=== PATIENT | female | born 1965 | race Caucasian/White ===

== ENCOUNTER 2023-09-15 05:31 | Emergency (ER) | payer MEDICAID, SELFPAY ==
[2023-09-15] VITALS (56 sets, daily range): BP systolic 77–141; BP diastolic 45–87; PULSE 75–135; RESP 22–24; TEMP 36.8–38.6; O2SAT 87–97; BMI 26.6
--- NOTE | 2023-09-15 05:44 | ED_ITS ---
HPI - General Adult General Time Seen by Provider: 05:44 <Joie Thomson MD - Last Filed: 09/15/23 06:00> Date Seen: 09/15/23 <Joie Thomson MD - Last Filed: 09/15/23 06:00> Chief complaint: Shortness of Breath/Dyspnea <Joie Thomson MD - Last Filed: 09/15/23 06:00> Stated complaint: Shortness of breath, chest pain <Joie Thomson MD - Last Filed: 09/15/23 06:00> Time Seen by Provider: 09/15/23 05:33 <Joie Thomson MD - Last Filed: 09/15/23 06:00> Source: patient and RN notes reviewed <Joie Thomson MD - Last Filed: 09/15/23 06:00> Mode of arrival: ambulatory <Joie Thomson MD - Last Filed: 09/15/23 06:00> Limitations: no limitations <Joie Thomson MD - Last Filed: 09/15/23 06:00> History of Present Illness HPI narrative: This 58-year-old female is ambulatory into the ED with complaint of chest congestion and shortness of breath. She came home [place] night stating she felt terrible. She reportedly slept most of the weekend. She has been coughing. Fevers. She is a smoker, does not carry a diagnosis of COPD but likely has it. This fall she had episode of chest congestion and was diagnosed with bronchitis, chest x-ray was done which had clinical features seen with COPD. She feels like she cannot breathe. She remember she did not like how the albuterol made her feel. O2 sats on arrival were 87%. No associated GI symptoms. She does report a history of pneumonia. She continues to be nicotine dependent but states she can not currently smoke. <Joie Thomson MD - Last Filed: 09/15/23 06:00> Related Data Home medications: Home Medications Medication Instructions Recorded Confirmed No Known Home Medications 09/15/23 09/15/23 <Joie Thomson MD - Last Filed: 09/15/23 06:00> Allergies/adverse reactions: Allergies Allergy/AdvReac Type Severity Reaction Status Date / Time No Known Drug Allergies Allergy Verified 09/15/23 05:43 <Joie Thomson MD - Last Filed: 09/15/23 06:00> Review of Systems Status of ROS: Reports: 6 or more systems reviewed and unremarkable except as noted in History and below <Joie Thomson MD - Last Filed: 09/15/23 06:00> [facility] Medical History: Medical History (Updated 09/15/23 @ 09:12 by Margy Gamez MD) No significant past medical history <Joie Thomson MD - Last Filed: 09/15/23 06:00> Surgical History: Surgical History (Updated 09/15/23 @ 06:05 by Magen Mckeon RN) No significant past surgical history <Joie Thomson MD - Last Filed: 09/15/23 06:00> Social History: Social History Smoking Status: Current every day smoker Second hand tobacco smoke exposure: Yes How often do you have a drink containing alcohol: never How often do you have six or more drinks on one occasion: Never AUDIT-C Alcohol total score: 0 Non-prescribed substance use: denies use <Joie Thomson MD - Last Filed: 09/15/23 06:00> Exam Const: Vital Signs, click to edit/add: Vital Signs - 24 hr 09/15/23 05:41 09/15/23 05:46 09/15/23 06:00 Temperature 101.5 F H Pulse Rate 130 H Pulse Rate [Right Pulse Oximeter] 135 H Respiratory Rate 24 Blood Pressure Blood Pressure [Ri ght Upper Arm] 123/75 Pulse Oximetry 87 L 91 92 Oxygen Delivery Me thod Room Air Oxygen Flow Rate 09/15/23 06:00 09/15/23 06:00 09/15/23 06:00 Temperature 101.5 F H Pulse Rate 123 H Pulse Rate [Right Pulse Oximeter] Respiratory Rate Blood Pressure Blood Pressure [Ri ght Upper Arm] Pulse Oximetry 93 91 Oxygen Delivery Me thod Nasal Cannula Oxygen Flow Rate 4 09/15/23 06:15 09/15/23 06:16 09/15/23 06:17 Temperature Pulse Rate 124 H 123 H 120 H Pulse Rate [Right Pulse Oximeter] Respiratory Rate Blood Pressure 89/69 L 91/62 Blood Pressure [Ri ght Upper Arm] Pulse Oximetry 91 91 91 Oxygen Delivery Me thod Nasal Cannula Nasal Cannula Oxygen Flow Rate 4 4 09/15/23 06:31 09/15/23 06:32 09/15/23 06:46 Temperature 98.2 F Pulse Rate 106 H 110 H 110 H Pulse Rate [Right Pulse Oximeter] Respiratory Rate 22 24 Blood Pressure 94/62 95/63 Blood Pressure [Ri ght Upper Arm] Pulse Oximetry 91 93 94 Oxygen Delivery Me thod Oxygen Flow Rate 09/15/23 06:47 09/15/23 07:00 09/15/23 07:01 Temperature Pulse Rate 109 H 100 97 Pulse Rate [Right Pulse Oximeter] Respiratory Rate Blood Pressure 81/56 L Blood Pressure [Ri ght Upper Arm] Pulse Oximetry 93 93 92 Oxygen Delivery Me thod Nasal Cannula Nasal Cannula Oxygen Flow Rate 3 3 09/15/23 07:06 09/15/23 07:15 09/15/23 07:17 Temperature Pulse Rate 103 H 101 H 100 Pulse Rate [Right Pulse Oximeter] Respiratory Rate Blood Pressure 84/62 L 80/60 L Blood Pressure [Ri ght Upper Arm] Pulse Oximetry 94 94 93 Oxygen Delivery Me thod Nasal Cannula Nasal Cannula Nasal Cannula Oxygen Flow Rate 3 3 3 09/15/23 07:30 09/15/23 07:35 09/15/23 07:42 Temperature Pulse Rate 96 96 96 Pulse Rate [Right Pulse Oximeter] Respiratory Rate Blood Pressure 81/60 L 88/54 L Blood Pressure [Ri ght Upper Arm] Pulse Oximetry 90 93 95 Oxygen Delivery Me thod Nasal Cannula Nasal Cannula Nasal Cannula Oxygen Flow Rate 3 3 3 09/15/23 07:45 09/15/23 07:45 09/15/23 07:48 Temperature 99 F Pulse Rate 92 92 Pulse Rate [Right Pulse Oximeter] Respiratory Rate Blood Pressure 82/59 L Blood Pressure [Ri ght Upper Arm] Pulse Oximetry 94 94 Oxygen Delivery Me thod Nasal Cannula Nasal Cannula Oxygen Flow Rate 3 3 09/15/23 08:00 09/15/23 08:01 09/15/23 08:15 Temperature Pulse Rate 88 89 86 Pulse Rate [Right Pulse Oximeter] Respiratory Rate Blood Pressure 84/56 L Blood Pressure [Ri ght Upper Arm] Pulse Oximetry 95 95 96 Oxygen Delivery Me thod Nasal Cannula Nasal Cannula Nasal Cannula Oxygen Flow Rate 3 3 3 09/15/23 08:17 09/15/23 08:21 09/15/23 08:30 Temperature Pulse Rate 83 86 Pulse Rate [Right Pulse Oximeter] Respiratory Rate Blood Pressure 82/70 L 102/56 L Blood Pressure [Ri ght Upper Arm] Pulse Oximetry 94 97 Oxygen Delivery Me thod Nasal Cannula Nasal Cannula Nasal Cannula Oxygen Flow Rate 3 3 3 09/15/23 08:31 09/15/23 08:36 09/15/23 08:37 Temperature Pulse Rate 84 87 83 Pulse Rate [Right Pulse Oximeter] Respiratory Rate Blood Pressure 83/63 L 108/55 L Blood Pressure [Ri ght Upper Arm] Pulse Oximetry 94 95 95 Oxygen Delivery Me thod Nasal Cannula Nasal Cannula Nasal Cannula Oxygen Flow Rate 3 3 3 09/15/23 08:42 09/15/23 08:45 09/15/23 08:47 Temperature Pulse Rate 86 83 84 Pulse Rate [Right Pulse Oximeter] Respiratory Rate Blood Pressure 126/85 141/87 H Blood Pressure [Ri ght Upper Arm] Pulse Oximetry 96 95 95 Oxygen Delivery Me thod Nasal Cannula Nasal Cannula Nasal Cannula Oxygen Flow Rate 2 2 2 09/15/23 08:48 09/15/23 08:52 09/15/23 08:53 Temperature Pulse Rate 83 82 84 Pulse Rate [Right Pulse Oximeter] Respiratory Rate Blood Pressure 85/49 L 101/54 L Blood Pressure [Ri ght Upper Arm] Pulse Oximetry 95 95 94 Oxygen Delivery Me thod Nasal Cannula Nasal Cannula Nasal Cannula Oxygen Flow Rate 2 2 1.5 09/15/23 08:56 09/15/23 08:57 09/15/23 08:58 Temperature Pulse Rate 86 84 79 Pulse Rate [Right Pulse Oximeter] Respiratory Rate Blood Pressure 77/62 L 106/58 L 95/58 L Blood Pressure [Ri ght Upper Arm] Pulse Oximetry 95 94 94 Oxygen Delivery Me thod Nasal Cannula Nasal Cannula Nasal Cannula Oxygen Flow Rate 1.5 1.5 1.5 09/15/23 09:00 09/15/23 09:01 09/15/23 09:06 Temperature Pulse Rate 82 84 83 Pulse Rate [Right Pulse Oximeter] Respiratory Rate Blood Pressure 109/63 110/76 Blood Pressure [Ri ght Upper Arm] Pulse Oximetry 94 94 95 Oxygen Delivery Me thod Nasal Cannula Nasal Cannula Nasal Cannula Oxygen Flow Rate 1.5 1.5 1.5 09/15/23 09:11 09/15/23 09:12 09/15/23 09:15 Temperature Pulse Rate 82 79 82 Pulse Rate [Right Pulse Oximeter] Respiratory Rate Blood Pressure 107/66 Blood Pressure [Ri ght Upper Arm] Pulse Oximetry 94 94 93 Oxygen Delivery Me thod Nasal Cannula Nasal Cannula Nasal Cannula Oxygen Flow Rate 1.5 1.5 1.5 09/15/23 09:18 09/15/23 09:21 09/15/23 09:30 Temperature Pulse Rate 82 86 76 Pulse Rate [Right Pulse Oximeter] Respiratory Rate Blood Pressure 100/60 99/48 L Blood Pressure [Ri ght Upper Arm] Pulse Oximetry 94 95 94 Oxygen Delivery Me thod Nasal Cannula Nasal Cannula Nasal Cannula Oxygen Flow Rate 1.5 1.5 1.5 09/15/23 09:30 09/15/23 09:31 09/15/23 09:32 Temperature 98.8 F Pulse Rate 75 75 Pulse Rate [Right Pulse Oximeter] Respiratory Rate Blood Pressure 98/63 Blood Pressure [Ri ght Upper Arm] Pulse Oximetry 94 94 Oxygen Delivery Me thod Nasal Cannula Oxygen Flow Rate 1.5 09/15/23 09:41 09/15/23 09:45 09/15/23 09:51 Temperature Pulse Rate 84 86 84 Pulse Rate [Right Pulse Oximeter] Respiratory Rate Blood Pressure 98/72 96/64 Blood Pressure [Ri ght Upper Arm] Pulse Oximetry 96 96 94 Oxygen Delivery Me thod Oxygen Flow Rate 09/15/23 10:00 09/15/23 10:02 Temperature Pulse Rate 78 79 Pulse Rate [Right Pulse Oximeter] Respiratory Rate Blood Pressure 99/45 L Blood Pressure [Ri ght Upper Arm] Pulse Oximetry 95 95 Oxygen Delivery Me thod Oxygen Flow Rate Patient is sitting upright on the edge of the bed, has oxygen on. On 4 L she is only 90-91%. Sclera clear, pupils equal round reactive. She is still able to talk but more in short phrases. Face atraumatic. Neck is supple, no cervical adenopathy or thyromegaly masses or nodules. Lungs with distant breath sounds, here no crackles or wheezing, she does have prolonged expiratory rib phase. CV fast, harsh systolic murmur heard right upper sternal border, 2 to 3/6. Normal S1-S2, no S3-S4. Abdomen is soft, nontender. She has no lower extremity edema. <Joie Thomson MD - Last Filed: 09/15/23 06:00> Vital Signs, click to edit/add: Vital Signs - 24 hr 09/15/23 05:41 09/15/23 05:46 09/15/23 06:00 Temperature 101.5 F H Pulse Rate 130 H Pulse Rate [Right Pulse Oximeter] 135 H Respiratory Rate 24 Blood Pressure Blood Pressure [Ri ght Upper Arm] 123/75 Pulse Oximetry 87 L 91 92 Oxygen Delivery Me thod Room Air Oxygen Flow Rate 09/15/23 06:00 09/15/23 06:00 09/15/23 06:00 Temperature 101.5 F H Pulse Rate 123 H Pulse Rate [Right Pulse Oximeter] Respiratory Rate Blood Pressure Blood Pressure [Ri ght Upper Arm] Pulse Oximetry 93 91 Oxygen Delivery Me thod Nasal Cannula Oxygen Flow Rate 4 09/15/23 06:15 09/15/23 06:16 09/15/23 06:17 Temperature Pulse Rate 124 H 123 H 120 H Pulse Rate [Right Pulse Oximeter] Respiratory Rate Blood Pressure 89/69 L 91/62 Blood Pressure [Ri ght Upper Arm] Pulse Oximetry 91 91 91 Oxygen Delivery Me thod Nasal Cannula Nasal Cannula Oxygen Flow Rate 4 4 09/15/23 06:31 09/15/23 06:32 09/15/23 06:46 Temperature 98.2 F Pulse Rate 106 H 110 H 110 H Pulse Rate [Right Pulse Oximeter] Respiratory Rate 22 24 Blood Pressure 94/62 95/63 Blood Pressure [Ri ght Upper Arm] Pulse Oximetry 91 93 94 Oxygen Delivery Me thod Oxygen Flow Rate 09/15/23 06:47 09/15/23 07:00 09/15/23 07:01 Temperature Pulse Rate 109 H 100 97 Pulse Rate [Right Pulse Oximeter] Respiratory Rate Blood Pressure 81/56 L Blood Pressure [Ri ght Upper Arm] Pulse Oximetry 93 93 92 Oxygen Delivery Me thod Nasal Cannula Nasal Cannula Oxygen Flow Rate 3 3 09/15/23 07:06 09/15/23 07:15 09/15/23 07:17 Temperature Pulse Rate 103 H 101 H 100 Pulse Rate [Right Pulse Oximeter] Respiratory Rate Blood Pressure 84/62 L 80/60 L Blood Pressure [Ri ght Upper Arm] Pulse Oximetry 94 94 93 Oxygen Delivery Me thod Nasal Cannula Nasal Cannula Nasal Cannula Oxygen Flow Rate 3 3 3 09/15/23 07:30 09/15/23 07:35 09/15/23 07:42 Temperature Pulse Rate 96 96 96 Pulse Rate [Right Pulse Oximeter] Respiratory Rate Blood Pressure 81/60 L 88/54 L Blood Pressure [Ri ght Upper Arm] Pulse Oximetry 90 93 95 Oxygen Delivery Me thod Nasal Cannula Nasal Cannula Nasal Cannula Oxygen Flow Rate 3 3 3 09/15/23 07:45 09/15/23 07:45 09/15/23 07:48 Temperature 99 F Pulse Rate 92 92 Pulse Rate [Right Pulse Oximeter] Respiratory Rate Blood Pressure 82/59 L Blood Pressure [Ri ght Upper Arm] Pulse Oximetry 94 94 Oxygen Delivery Me thod Nasal Cannula Nasal Cannula Oxygen Flow Rate 3 3 09/15/23 08:00 09/15/23 08:01 09/15/23 08:15 Temperature Pulse Rate 88 89 86 Pulse Rate [Right Pulse Oximeter] Respiratory Rate Blood Pressure 84/56 L Blood Pressure [Ri ght Upper Arm] Pulse Oximetry 95 95 96 Oxygen Delivery Me thod Nasal Cannula Nasal Cannula Nasal Cannula Oxygen Flow Rate 3 3 3 09/15/23 08:17 09/15/23 08:21 09/15/23 08:30 Temperature Pulse Rate 83 86 Pulse Rate [Right Pulse Oximeter] Respiratory Rate Blood Pressure 82/70 L 102/56 L Blood Pressure [Ri ght Upper Arm] Pulse Oximetry 94 97 Oxygen Delivery Me thod Nasal Cannula Nasal Cannula Nasal Cannula Oxygen Flow Rate 3 3 3 09/15/23 08:31 09/15/23 08:36 09/15/23 08:37 Temperature Pulse Rate 84 87 83 Pulse Rate [Right Pulse Oximeter] Respiratory Rate Blood Pressure 83/63 L 108/55 L Blood Pressure [Ri ght Upper Arm] Pulse Oximetry 94 95 95 Oxygen Delivery Me thod Nasal Cannula Nasal Cannula Nasal Cannula Oxygen Flow Rate 3 3 3 09/15/23 08:42 09/15/23 08:45 09/15/23 08:47 Temperature Pulse Rate 86 83 84 Pulse Rate [Right Pulse Oximeter] Respiratory Rate Blood Pressure 126/85 141/87 H Blood Pressure [Ri ght Upper Arm] Pulse Oximetry 96 95 95 Oxygen Delivery Me thod Nasal Cannula Nasal Cannula Nasal Cannula Oxygen Flow Rate 2 2 2 09/15/23 08:48 09/15/23 08:52 09/15/23 08:53 Temperature Pulse Rate 83 82 84 Pulse Rate [Right Pulse Oximeter] Respiratory Rate Blood Pressure 85/49 L 101/54 L Blood Pressure [Ri ght Upper Arm] Pulse Oximetry 95 95 94 Oxygen Delivery Me thod Nasal Cannula Nasal Cannula Nasal Cannula Oxygen Flow Rate 2 2 1.5 09/15/23 08:56 09/15/23 08:57 09/15/23 08:58 Temperature Pulse Rate 86 84 79 Pulse Rate [Right Pulse Oximeter] Respiratory Rate Blood Pressure 77/62 L 106/58 L 95/58 L Blood Pressure [Ri ght Upper Arm] Pulse Oximetry 95 94 94 Oxygen Delivery Me thod Nasal Cannula Nasal Cannula Nasal Cannula Oxygen Flow Rate 1.5 1.5 1.5 09/15/23 09:00 09/15/23 09:01 09/15/23 09:06 Temperature Pulse Rate 82 84 83 Pulse Rate [Right Pulse Oximeter] Respiratory Rate Blood Pressure 109/63 110/76 Blood Pressure [Ri ght Upper Arm] Pulse Oximetry 94 94 95 Oxygen Delivery Me thod Nasal Cannula Nasal Cannula Nasal Cannula Oxygen Flow Rate 1.5 1.5 1.5 09/15/23 09:11 09/15/23 09:12 09/15/23 09:15 Temperature Pulse Rate 82 79 82 Pulse Rate [Right Pulse Oximeter] Respiratory Rate Blood Pressure 107/66 Blood Pressure [Ri ght Upper Arm] Pulse Oximetry 94 94 93 Oxygen Delivery Me thod Nasal Cannula Nasal Cannula Nasal Cannula Oxygen Flow Rate 1.5 1.5 1.5 09/15/23 09:18 09/15/23 09:21 09/15/23 09:30 Temperature Pulse Rate 82 86 76 Pulse Rate [Right Pulse Oximeter] Respiratory Rate Blood Pressure 100/60 99/48 L Blood Pressure [Ri ght Upper Arm] Pulse Oximetry 94 95 94 Oxygen Delivery Me thod Nasal Cannula Nasal Cannula Nasal Cannula Oxygen Flow Rate 1.5 1.5 1.5 09/15/23 09:30 09/15/23 09:31 09/15/23 09:32 Temperature 98.8 F Pulse Rate 75 75 Pulse Rate [Right Pulse Oximeter] Respiratory Rate Blood Pressure 98/63 Blood Pressure [Ri ght Upper Arm] Pulse Oximetry 94 94 Oxygen Delivery Me thod Nasal Cannula Oxygen Flow Rate 1.5 09/15/23 09:41 09/15/23 09:45 09/15/23 09:51 Temperature Pulse Rate 84 86 84 Pulse Rate [Right Pulse Oximeter] Respiratory Rate Blood Pressure 98/72 96/64 Blood Pressure [Ri ght Upper Arm] Pulse Oximetry 96 96 94 Oxygen Delivery Me thod Oxygen Flow Rate 09/15/23 10:00 09/15/23 10:02 Temperature Pulse Rate 78 79 Pulse Rate [Right Pulse Oximeter] Respiratory Rate Blood Pressure 99/45 L Blood Pressure [Ri ght Upper Arm] Pulse Oximetry 95 95 Oxygen Delivery Me thod Oxygen Flow Rate <Margy Gamez MD - Last Filed: 09/15/23 10:24> Documenting provider has reviewed patient's vital signs: yes <Joie Thomson MD - Last Filed: 09/15/23 06:00> Course Course ED Course: This is a febrile, hypoxic, tachycardic smoker. Likely COPD with infectious etiology, very likely respiratory. She also has a harsh systolic murmur. Her hypoxia will be watched closely, requiring 4 L just to have her at 90-91%. Will get a venous blood gas, CBC, blood cultures. Will try to run point of care troponin and creatinine. Unfortunately the chemistry analyzer is completely down. Sodium, potassium, glucose can be done, they will be able to get a lactate but all other labs are not available at this time. Will obtain portable chest x-ray. Nursing staff had appropriately collected the viral triple swab. Will hold off a nebulization at this point, this certainly could be COVID. If her COVID comes back negative, do think nebulization should be tried. Obviously fussy lobar pneumonia on the portable chest x-ray, may consider that as well. Will give her some Tylenol for fever control. I will also give her 10 mg IV dexamethasone. <Joie Thomson MD - Last Filed: 09/15/23 06:00> Reevaluation(s) Time of Reevaluation #1: 06:20 <Margy Gamez MD - Last Filed: 09/15/23 10:24> Reevaluation #1: Dr. Arita signed this patient out to me. Currently awaiting chest x- ray and triple swab results. Patient's O2 sats improved with oxygen. Blood pressure has drop to 91/62 and her pulse is gone from 135-120. Have ordered 500 mL normal saline. White count within normal limits. Unable to find previous EKG within our system or in the [facility] hyperlink. There is documentation of a murmur on [facility] hyperlink. Re-examination shows patient to be tachycardic at 0105. Systolic murmur 2 to 3/6 noted. Patient denies any chest pain but describes a chest tightness across her chest. She notes that she is much better on oxygen. Symptoms started on FridaySeptember 12. Today is day 4 of symptoms. Has had exposure to illnesses in grand children recently. No vaccination against COVID but states she probably had it -states does not like the word COVID. No flu vaccinations. Does note that she and her have been doing some fasting and still having bowel movements but no diarrhea. Does note that her bowel movements have been black and tarry . Has not seen any blood and no history of abdominal pain. Fecal occult test accomplished. Rectal exam without any obvious gross blood. <Margy Gamez MD - Last Filed: 09/15/23 10:24> Reevaluation #2: Patient continues to be hypotensive although her tachycardia is improved and her heart rate is at 94. Blood pressures 80s over 60s. Initially we had held off on fluids given possibility of COVID but once we knew this was influenza we did give 500 mL plus additional L is now going. Did speak to patient about the possibility of starting a pressor. Blood culture, procalcitonin, lactate just drawn. Zithromax and Tamiflu given. Rocephin is now infusing. <Margy Gamez MD - Last Filed: 09/15/23 10:24> Time of Reevaluation #3: 08:15 <Margy Gamez MD - Last Filed: 09/15/23 10:24> Reevaluation #3: blood pressure persistently hypotensive in spite of 1.5 L of fluid. At this time I have ordered norepinephrine drip. Nursing notes that Ne initially did not want this stating she was feeling better and she did not feel that she was that sick. I did explain to her that she indeed is ill and I highly suggest the pressor. I did state that I would not be able to keep her here in [place]. She is requesting [facility] or [place]. I have placed a call and spoken to triage nurse. Currently awaiting acceptance. I am requesting ICU bed. Nor epi has been started and blood pressure now 102 systolic with heart rate of 80. Second lactate within normal limits. Fecal occult blood negative. Troponin and procalcitonin pending. 0845: I did speak to patient about [facility] [place] She would like to stay within the [facility]. She states she will not go to [place] and talks about going home after receiving fluids here. I have tried to impress upon her how Ill she is at this time. Unfortunately [facility] and [facility] do not have availability but [facility] does. falguni suggest [place] but to my knowledge all of a stings ICU patient's actually go to [place]. She does not want to go to the [facility]. I have spoken to Ramses and her about the lack of ICU and bed availability and that we really should take this bad if at a ll possible. She does agree to go to [facility] although reluctantly. Given multiple issues including rising troponin, hypoxia, hypotension requiring pressors patient should not remain at [facility] as she needs Cardiology and cleaning attendant attention. <Margy Gamez MD - Last Filed: 09/15/23 10:24> Vital Signs Vital signs: Initial Vital Signs Temperature 101.5 F H 09/15/23 05:41 Temperature Source Temporal Artery Scan 09/15/23 05:41 Pulse Rate 135 H 09/15/23 05:41 Respiratory Rate 24 09/15/23 05:41 Blood Pressure 123/75 09/15/23 05:41 Blood Pressure Mean 91 09/15/23 05:41 Blood Pressure Position Sitting 09/15/23 05:41 Pulse Oximetry 87 L 09/15/23 05:41 Oxygen Delivery Method Room Air 09/15/23 05:41 Vital Signs Temperature 101.5 F H 09/15/23 05:41 Pulse Rate 135 H 09/15/23 05:41 Respiratory Rate 24 09/15/23 05:41 Blood Pressure 123/75 09/15/23 05:41 Pulse Oximetry 87 L 09/15/23 05:41 Oxygen Delivery Method Room Air 09/15/23 05:41 Temperature 98.8 F 09/15/23 09:30 Pulse Rate 79 09/15/23 10:02 Respiratory Rate 24 09/15/23 06:46 Blood Pressure 99/45 L 09/15/23 10:02 Pulse Oximetry 95 09/15/23 10:02 Oxygen Delivery Method Nasal Cannula 09/15/23 09:31 Oxygen Flow Rate 1.5 09/15/23 09:31 <Joie Thomson MD - Last Filed: 09/15/23 06:00> Initial Vital Signs Temperature 101.5 F H 09/15/23 05:41 Temperature Source Temporal Artery Scan 09/15/23 05:41 Pulse Rate 135 H 09/15/23 05:41 Respiratory Rate 24 09/15/23 05:41 Blood Pressure 123/75 09/15/23 05:41 Blood Pressure Mean 91 09/15/23 05:41 Blood Pressure Position Sitting 09/15/23 05:41 Pulse Oximetry 87 L 09/15/23 05:41 Oxygen Delivery Method Room Air 09/15/23 05:41 Vital Signs Temperature 101.5 F H 09/15/23 05:41 Pulse Rate 135 H 09/15/23 05:41 Respiratory Rate 24 09/15/23 05:41 Blood Pressure 123/75 09/15/23 05:41 Pulse Oximetry 87 L 09/15/23 05:41 Oxygen Delivery Method Room Air 09/15/23 05:41 Temperature 98.8 F 09/15/23 09:30 Pulse Rate 79 09/15/23 10:02 Respiratory Rate 24 09/15/23 06:46 Blood Pressure 99/45 L 09/15/23 10:02 Pulse Oximetry 95 09/15/23 10:02 Oxygen Delivery Method Nasal Cannula 09/15/23 09:31 Oxygen Flow Rate 1.5 09/15/23 09:31 <Margy Gamez MD - Last Filed: 09/15/23 10:24> Medications Administered Medications: Generic Name Dose Route Start Last Admin Trade Name Freq PRN Reason Stop Dose Admin Norepinephrine/Dextrose 4,000 mcg in 250 mls @ 29.767 mls/hr 09/15/23 07:40 09/15/23 09:52 Norepinephrine 4 Mg/250 Ml IV 0.15 mcg/kg/min CONT PRN 44.65 mls/hr Hypotension Titration Protocol 0.1 MCG/KG/MIN Discontinued Medications Generic Name Dose Route Start Last Admin Trade Name Daveq PRN Reason Stop Dose Admin Acetaminophen 1,000 mg 09/15/23 05:48 09/15/23 06:00 Acetaminophen 500 Mg Tablet PO 09/15/23 05:49 1,000 mg ONCE ONE Administration Azithromycin 500 mg 09/15/23 06:57 09/15/23 07:15 Azithromycin 250 Mg Tablet PO 09/15/23 06:58 500 mg ONCE ONE Administration Dexamethasone 10 mg 09/15/23 05:48 09/15/23 06:00 Dexamethasone 10 Mg/Ml Inj IVP 09/15/23 05:49 10 mg ONCE ONE Administration Sodium Chloride 500 mls @ 500 mls/hr 09/15/23 06:20 09/15/23 07:30 0.9 % Sodium Chloride 500 Ml IV 09/15/23 07:19 Infused .Q1H ONE Infusion Ceftriaxone Sodium 1 gm/ 100 mls @ 200 mls/hr 09/15/23 06:57 09/15/23 08:05 Sodium Chloride IVPB 09/15/23 06:58 Infused ONCE ONE Infusion Sodium Chloride 1,000 mls @ 1,000 mls/hr 09/15/23 07:19 09/15/23 08:10 0.9 % Sodium Chloride 1000 Ml IV 09/15/23 08:18 Infused .Q1H JOCELYNE Infusion Sodium Chloride 500 mls @ 500 mls/hr 09/15/23 08:32 09/15/23 08:32 0.9 % Sodium Chloride 500 Ml IV 09/15/23 09:31 500 mls/hr .Q1H ONE Administration Ketorolac Tromethamine 15 mg 09/15/23 07:49 09/15/23 08:15 Ketorolac 15 Mg/Ml Inj IVP 09/15/23 07:50 15 mg ONCE ONE Administration Oseltamivir Phosphate 75 mg 09/15/23 06:57 09/15/23 07:16 Oseltamivir Phosphate 75 Mg Capsule PO 09/15/23 06:58 75 mg ONCE ONE Administration <Joie R Suchomel-Carvajal, MD - Last Filed: 09/15/23 06:00> Generic Name Dose Route Start Last Admin Trade Name Freq PRN Reason Stop Dose Admin Norepinephrine/Dextrose 4,000 mcg in 250 mls @ 29.767 mls/hr 09/15/23 07:40 09/15/23 09:52 Norepinephrine 4 Mg/250 Ml IV 0.15 mcg/kg/min CONT PRN 44.65 mls/hr Hypotension Titration Protocol 0.1 MCG/KG/MIN Discontinued Medications Generic Name Dose Route Start Last Admin Trade Name Freq PRN Reason Stop Dose Admin Acetaminophen 1,000 mg 09/15/23 05:48 09/15/23 06:00 Acetaminophen 500 Mg Tablet PO 09/15/23 05:49 1,000 mg ONCE ONE Administration Azithromycin 500 mg 09/15/23 06:57 09/15/23 07:15 Azithromycin 250 Mg Tablet PO 09/15/23 06:58 500 mg ONCE ONE Administration Dexamethasone 10 mg 09/15/23 05:48 09/15/23 06:00 Dexamethasone 10 Mg/Ml Inj IVP 09/15/23 05:49 10 mg ONCE ONE Administration Sodium Chloride 500 mls @ 500 mls/hr 09/15/23 06:20 09/15/23 07:30 0.9 % Sodium Chloride 500 Ml IV 09/15/23 07:19 Infused .Q1H ONE Infusion Ceftriaxone Sodium 1 gm/ 100 mls @ 200 mls/hr 09/15/23 06:57 09/15/23 08:05 Sodium Chloride IVPB 09/15/23 06:58 Infused ONCE ONE Infusion Sodium Chloride 1,000 mls @ 1,000 mls/hr 09/15/23 07:19 09/15/23 08:10 0.9 % Sodium Chloride 1000 Ml IV 09/15/23 08:18 Infused .Q1H JOCELYNE Infusion Sodium Chloride 500 mls @ 500 mls/hr 09/15/23 08:32 09/15/23 08:32 0.9 % Sodium Chloride 500 Ml IV 09/15/23 09:31 500 mls/hr .Q1H ONE Administration Ketorolac Tromethamine 15 mg 09/15/23 07:49 09/15/23 08:15 Ketorolac 15 Mg/Ml Inj IVP 09/15/23 07:50 15 mg ONCE ONE Administration Oseltamivir Phosphate 75 mg 09/15/23 06:57 09/15/23 07:16 Oseltamivir Phosphate 75 Mg Capsule PO 09/15/23 06:58 75 mg ONCE ONE Administration <Margy Gamez MD - Last Filed: 09/15/23 10:24> Medical Decision Making MDM Narrative Medical decision making narrative: 1. Influenza A - patient has tested positive for influenza A. No previous vaccination. Will initiate Tamiflu 75 mg p.o. at this time. Tylenol given as well. Patient did have some body aches and thus was also given Toradol 15 mg IV. 2. Hypoxia- oxygen initially at 4 L now has been tapered to 2.5 L with oxygen levels 93-95%. There is no previous diagnosis of COPD but Ramses has a longstanding history of tobacco use. Blood gas showed a pH of 7.5-1, pCO2 of 26 and PO2 of 76. Patient states that she is feeling better with oxygen in place. Holding off a nebulizer at this time given what appears to be heart strain with elevated troponin. 3. Elevated troponin- Initial point of care troponin 0.07. A backup lab troponin I was 0.1. Repeat troponin 0.42.. EKG shows a left bundle branch block at a rate of 128. Second EKG shows left bundle-branch block at rate of 96. Nonspecific ST T-wave abnormality. Patient denies chest pain but does describe a tightness around her chest. No previous history of heart abnormalities with the exception of a murmur. Patient states that she had been watched at a young age in had had studies but none recently. A murmur is documented in her epic chart but I am unable to find echocardiogram or further description. Patient notes that it is mitral valve prolapse. EKG shows left bundle branch block. 4. Pneumonia-right lower lung lobe . Obviously noted on chest x-ray. Discussed with hospitalist. Will use Rocephin and Zithromax at this time for treatment. 5. Hypotension- patient arrived initially normotensive but blood pressures have dropped and now were noted to be consistently in the 80s in spite of fluid bolus. Norepinephrine was started with 1st blood pressure 102 systolic. Heart rate remains at 80. Will continue at this time. 6. Report of dark tarry stools-Hemoccult negative. 7. Disposition- Patient is been accepted to [facility]. Dr.Ivaskovic kening. Patient will be ground ambulance ALS transfer. <Margy Gamez MD - Last Filed: 09/15/23 10:24> Medical Records Medical records reviewed: Yes I reviewed the patient's medical records <Margy Gamez MD - Last Filed: 09/15/23 10:24> Lab Data Lab results reviewed: Yes I reviewed the patient's lab results <Margy Gamez MD - Last Filed: 09/15/23 10:24> Lab results narrative: Chemistry Analyzer is not working. We are dependent upon point of care values. <Margy Gamez MD - Last Filed: 09/15/23 10:24> Labs: Lab Results 09/15/23 09/15/23 09/15/23 Range/Units 05:40 05:50 05:58 WBC 9.46 (4.50-11.00) K/uL RBC 4.25 (4.00-5.20) m/uL Hgb 13.6 (12.0-16.0) gm/dL Hct 39.2 (33.0-51.0) % MCV 92 (80-100) fL MCH 32 (26-34) pg MCHC 35 (32-36) gm/dL RDW Coeff of Shira 12.3 (11.5-15.5) % Plt Count 108 L (140-440) K/uL Neut % (Auto) 86.6 H (42.0-72.0) % Lymph % (Auto) 5.3 L (20-44) % Bradford % (Auto) 7.8 (0.0-11.0) % Eos % (Auto) 0.0 (0.0-7.0) % Baso % (Auto) 0.2 (0.0-3.0) % Neut # (Auto) 8.20 H (1.7-7.0) K/uL Lymph # (Auto) 0.50 L (0.90-2.90) K/uL Bradford # (Auto) 0.70 (0.00-0.90) K/UL Eos # (Auto) 0.00 (0.00-0.50) K/uL Baso # (Auto) 0.02 (0.00-0.30) K/uL Abs Immat Gran (auto) 0.01 (0.00-0.30) K/uL Imm/Tot Granulo (auto) 0.1 % VBG pH 7.521 H (7.32-7.43) VBG pCO2 26 L (40-50) mmHG VBG pO2 76.2 H (25-47) mmHG VBG HCO3 21 (21-28) mmol/L Sodium (135-149) mmol/L Potassium (3.6-5.1) mmol/L Glucose (60-115) mg/dL Lactate 1.0 (0.5-1.9) mmol/L Troponin I (0.01-0.04) ng/mL Procalcitonin (<0.50) ng/mL Stool Occult Blood (Negative) SARS-CoV-2 (PCR) Negative SARS-CoV-2 (Negative) Influenza Type A (PCR) POSITIVE PCR FLU A A (Negative) Influenza Type B (PCR) Negative PCR FLU B (Negative) RSV (PCR) Negative PCR RSV (Negative) POC Creatinine 0.5 L (0.6-1.3) mg/dl POC Troponin I 0.07 H (0.01-0.04) ng/ml 09/15/23 09/15/23 09/15/23 Range/Units 06:10 06:42 07:28 WBC (4.50-11.00) K/uL RBC (4.00-5.20) m/uL Hgb (12.0-16.0) gm/dL Hct (33.0-51.0) % MCV (80-100) fL MCH (26-34) pg MCHC (32-36) gm/dL RDW Coeff of Shira (11.5-15.5) % Plt Count (140-440) K/uL Neut % (Auto) (42.0-72.0) % Lymph % (Auto) (20-44) % Bradford % (Auto) (0.0-11.0) % Eos % (Auto) (0.0-7.0) % Baso % (Auto) (0.0-3.0) % Neut # (Auto) (1.7-7.0) K/uL Lymph # (Auto) (0.90-2.90) K/uL Bradford # (Auto) (0.00-0.90) K/UL Eos # (Auto) (0.00-0.50) K/uL Baso # (Auto) (0.00-0.30) K/uL Abs Immat Gran (auto) (0.00-0.30) K/uL Imm/Tot Granulo (auto) % VBG pH (7.32-7.43) VBG pCO2 (40-50) mmHG VBG pO2 (25-47) mmHG VBG HCO3 (21-28) mmol/L Sodium 131 L (135-149) mmol/L Potassium 3.5 L (3.6-5.1) mmol/L Glucose 108 (60-115) mg/dL Lactate 0.7 (0.5-1.9) mmol/L Troponin I 0.10 H* 0.42 H* (0.01-0.04) ng/mL Procalcitonin 0.07 (<0.50) ng/mL Stool Occult Blood Negative (Negative) SARS-CoV-2 (PCR) (Negative) Influenza Type A (PCR) (Negative) Influenza Type B (PCR) (Negative) RSV (PCR) (Negative) POC Creatinine (0.6-1.3) mg/dl POC Troponin I (0.01-0.04) ng/ml <Joie Thomson MD - Last Filed: 09/15/23 06:00> Lab Results 09/15/23 09/15/23 09/15/23 Range/Units 05:40 05:50 05:58 WBC 9.46 (4.50-11.00) K/uL RBC 4.25 (4.00-5.20) m/uL Hgb 13.6 (12.0-16.0) gm/dL Hct 39.2 (33.0-51.0) % MCV 92 (80-100) fL MCH 32 (26-34) pg MCHC 35 (32-36) gm/dL RDW Coeff of Shira 12.3 (11.5-15.5) % Plt Count 108 L (140-440) K/uL Neut % (Auto) 86.6 H (42.0-72.0) % Lymph % (Auto) 5.3 L (20-44) % Bradford % (Auto) 7.8 (0.0-11.0) % Eos % (Auto) 0.0 (0.0-7.0) % Baso % (Auto) 0.2 (0.0-3.0) % Neut # (Auto) 8.20 H (1.7-7.0) K/uL Lymph # (Auto) 0.50 L (0.90-2.90) K/uL Bradford # (Auto) 0.70 (0.00-0.90) K/UL Eos # (Auto) 0.00 (0.00-0.50) K/uL Baso # (Auto) 0.02 (0.00-0.30) K/uL Abs Immat Gran (auto) 0.01 (0.00-0.30) K/uL Imm/Tot Granulo (auto) 0.1 % VBG pH 7.521 H (7.32-7.43) VBG pCO2 26 L (40-50) mmHG VBG pO2 76.2 H (25-47) mmHG VBG HCO3 21 (21-28) mmol/L Sodium (135-149) mmol/L Potassium (3.6-5.1) mmol/L Glucose (60-115) mg/dL Lactate 1.0 (0.5-1.9) mmol/L Troponin I (0.01-0.04) ng/mL Procalcitonin (<0.50) ng/mL Stool Occult Blood (Negative) SARS-CoV-2 (PCR) Negative SARS-CoV-2 (Negative) Influenza Type A (PCR) POSITIVE PCR FLU A A (Negative) Influenza Type B (PCR) Negative PCR FLU B (Negative) RSV (PCR) Negative PCR RSV (Negative) POC Creatinine 0.5 L (0.6-1.3) mg/dl POC Troponin I 0.07 H (0.01-0.04) ng/ml 09/15/23 09/15/23 09/15/23 Range/Units 06:10 06:42 07:28 WBC (4.50-11.00) K/uL RBC (4.00-5.20) m/uL Hgb (12.0-16.0) gm/dL Hct (33.0-51.0) % MCV (80-100) fL MCH (26-34) pg MCHC (32-36) gm/dL RDW Coeff of Shira (11.5-15.5) % Plt Count (140-440) K/uL Neut % (Auto) (42.0-72.0) % Lymph % (Auto) (20-44) % Bradford % (Auto) (0.0-11.0) % Eos % (Auto) (0.0-7.0) % Baso % (Auto) (0.0-3.0) % Neut # (Auto) (1.7-7.0) K/uL Lymph # (Auto) (0.90-2.90) K/uL Bradford # (Auto) (0.00-0.90) K/UL Eos # (Auto) (0.00-0.50) K/uL Baso # (Auto) (0.00-0.30) K/uL Abs Immat Gran (auto) (0.00-0.30) K/uL Imm/Tot Granulo (auto) % VBG pH (7.32-7.43) VBG pCO2 (40-50) mmHG VBG pO2 (25-47) mmHG VBG HCO3 (21-28) mmol/L Sodium 131 L (135-149) mmol/L Potassium 3.5 L (3.6-5.1) mmol/L Glucose 108 (60-115) mg/dL Lactate 0.7 (0.5-1.9) mmol/L Troponin I 0.10 H* 0.42 H* (0.01-0.04) ng/mL Procalcitonin 0.07 (<0.50) ng/mL Stool Occult Blood Negative (Negative) SARS-CoV-2 (PCR) (Negative) Influenza Type A (PCR) (Negative) Influenza Type B (PCR) (Negative) RSV (PCR) (Negative) POC Creatinine (0.6-1.3) mg/dl POC Troponin I (0.01-0.04) ng/ml <Margy Gamez MD - Last Filed: 09/15/23 10:24> Imaging Data Chest x-ray: Attestation: I have reviewed the pertinent imaging results. <Margy Gamez MD - Last Filed: 09/15/23 10:24> My impression: Increased lung markings right lower lung field. <Margy Gamez MD - Last Filed: 09/15/23 10:24> Radiologist's impression: Normal cardiomediastinal silhouette and pulmonary vasculature. Lungs are mildly hyperinflated, similar to prior. Hazy right basilar airspace opacities are most pronounced at the cardiophrenic angle. No large pleural effusion or pneumothorax. No acute osseous abnormality. IMPRESSION: 1. New right basilar airspace opacities concerning for pneumonia. 2. Hyperinflated lungs, which can be seen in the setting of reactive airway disease or emphysema. <Margy Gamez MD - Last Filed: 09/15/23 10:24> ECG Data Attestation: I personally reviewed and interpreted this ECG as follows: ( Sinus tachycardia, 128 beats per minute. Left bundle branch block, QT corrected 478 m illiseconds.) <Joie Thomson MD - Last Filed: 09/15/23 06:00> Prior ECG tracings: not available for review <Joie Thomson MD - Last Filed: 09/15/23 06:00> Interpretation: Initial EKG by my read shows sinus tachycardia at a rate of 128. There is a left bundle-branch block. There is evidence of T-wave inversion. EKG 2. By my read shows sinus rhythm at a rate of 96. Much improved from initial EKG. There is still suggestion of T-wave abnormality throughout. <Margy Gamez MD - Last Filed: 09/15/23 10:24> Critical Care Time Critical Care Time Critical Care Time: Yes Attestation: The patient required my highest level preparedness to intervene emergently and I personally spent this critical care time directly and personally managing the patient. This critical care time included: Obtaining a history; Examining the patient; Pulse oximetry; Ordering and reviewing of studies; Arranging urgent treatment with development of a management plan; Evaluation of patients response to treatment; Frequent reassessment discussions with other providers. This critical care time was performed to assess and manage the high probability of imminent life-threatening deterioration that could result in multiorgan failure. It was exclusive of separate billable procedures and treating other patients and teaching time. <Margy Gamez MD - Last Filed: 09/15/23 10:24> Total Critical Care Time in Minutes: 120 <Margy Gamez MD - Last Filed: 09/15/23 10:24> Discharge Plan Discharge Clinical Impression: Acute hypotension, Influenza A, Cardiac murmur, Elevated troponin, Hypoxic <Joie Thomson MD - Last Filed: 09/15/23 06:00> Patient Disposition: [facility] <Joie Thomson MD - Last Filed: 09/15/23 06:00> Condition: Critical <Joie Thomson MD - Last Filed: 09/15/23 06:00>
--- NOTE | 2023-09-15 05:49 | CRLHL7_ITS ---
For Patients: As a result of the Century Cures Act, medical imaging exams and procedure reports are released immediately into your electronic medical record. You may view this report before your referring provider. If you have questions, please contact your health care provider. INDICATION: Hypoxia. TECHNIQUE: Chest 1 views. COMPARISON: 05/29/2023. FINDINGS: Normal cardiomediastinal silhouette and pulmonary vasculature. Lungs are mildly hyperinflated, similar to prior. Hazy right basilar airspace opacities are most pronounced at the cardiophrenic angle. No large pleural effusion or pneumothorax. No acute osseous abnormality. IMPRESSION: 1. New right basilar airspace opacities concerning for pneumonia. 2. Hyperinflated lungs, which can be seen in the setting of reactive airway disease or emphysema. Dictated by Irene Douglas MD @ 09/15/2023 6:44:26 AM (Electronically Signed)
[2023-09-15] MEDS: ACETAMINOPHEN 500 MG TABLET 1000 MG PO (06:00)
[2023-09-15] MEDS: dexAMETHasone 10 MG/ML inj IVP (06:00)
[2023-09-15 06:03] LABS: Basophils Absolute Auto 0.02 K/uL (0.00-0.30); Basophils Percent Auto 0.2 % (0.0-3.0); HCO3 VBG 21 mmol/L (21-28); Hematocrit 39.2 % (33.0-51.0); Hemoglobin* 13.6 gm/dL (12.0-16.0); Immature Granulocytes Abs Auto 0.01 K/uL (0.00-0.30); Immature Granulocytes Pct Auto 0.1 %; Lymphocytes Percent Auto 5.3 % (20-44); Mean Corpuscular HGB Conc 35 gm/dL (32-36); Mean Corpuscular Hemoglobin 32 pg (26-34); Mean Corpuscular Volume 92 fL (80-100); Monocytes Percent Auto 7.8 % (0.0-11.0); Neutrophils Percent Auto 86.6 % (42.0-72.0); PCO2 VBG 26 mmHG (40-50); PO2 VBG 76.2 mmHG (25-47); Platelet Count* 108 K/uL (140-440); RDW Coefficient of Variation % 12.3 % (11.5-15.5); Red Blood Count 4.25 m/uL (4.00-5.20); White Blood Count* 9.46 K/uL (4.50-11.00); pH VBG 7.521 (7.32-7.43)
[2023-09-15 06:04] LABS: Slide Review Reflex No
[2023-09-15 06:08] LABS: Troponin, Point-of-Care* 0.07 ng/ml (0.01-0.04)
--- OUTSIDE RECORDS SUMMARY | 2023-09-15 06:08 | XMS_ITS | Clinical Summary ---
Author Name Unknown Organization [facility] Address [place], [place] [address] Care Team Providers Care Drink Box Mechanic Name Role Phone Pcp, No Primary Care Provider Unavailabl e Allergies No known active allergies Medications Medication Sig Dispensed Refills Start Date End Date Status penicillin v potassium (PEN-VEE K) 500 mg tablet Take 1 tablet by mouth 2 times daily before meals. 20 tablet 0 06/24/2014 Active Active Problems No known active problems Family History Medical History Relation Name Comments Cancer Father lung Cancer-breast Mother survived, leatha ntia Good Health Sister Relation Name Status Comments Father Mother Sister Social History Tobacco Use Types Packs/Day Years Used Date Smoking Tobacco: Every Day Cigarettes Tobacco Cessation:Ready to Q uit: No; Counseling Given: No Alcohol Use Standard Drinks/Week Comments No 0 (1 standard drink = 0.6 oz pur e alcohol) Sex and Gender Information Value Date Recorded Sex Assigned at Not on file Gender Identity Not on file Sexual Orientation Not on file Obstetrics History Last Filed Vital Signs Vital Sign Reading Time Taken Comments Blood Pressure 130/60 06/24/2014 9:15 AM CDT Pulse 84 06/24/2014 9:15 AM CDT Temperature - - Respiratory Rate - - Oxygen Saturation - - Inhaled Oxygen Concentration - - Weight 83.5 kg (184 lb) 06/24/2014 9:15 AM CDT Height 170.2 cm (5' 7) 06/24/2014 9:15 AM CDT Body Mass Index 28.82 06/24/2014 9:15 AM CDT Plan of Treatment Health Maintenance Due Date Last Done Comments COVID-19 vaccine series (#1) 1963 Tdap 1974 Depression screening for age 12+ 1975 HIV for age 15-65 1978 BMI (ht and wt on same day) for age 18+ 1981 Tetanus booster 1983 Colonoscopy through age 75 2008 Mammogram for age 45-75 2008 Zoster (shingles) series for age 50+ (1 of 2) 2013 Pap test for age 21-65 06/24/2017 06/24/2014 Lipids for age 45-75 06/24/2019 06/24/2014 Influenza for age 50-64 05/02/2023 Hepatitis C screening for ag e 18-79 Completed 06/24/2014 Pneumococcal series for age 6-64 Aged Out No longer eligible based on patient's age to complete this topic Care Teams Drink Box Mechanic Relationship Specialty Start Date End Date Pcp, No . PCP - General 04/18/23
[2023-09-15 06:09] LABS: Creatinine, Point-of-Care* 0.5 mg/dl (0.6-1.3)
[2023-09-15 06:19] LABS: Glucose* 108 mg/dL (60-115); Potassium* 3.5 mmol/L (3.6-5.1); Sodium* 131 mmol/L (135-149)
--- NOTE | 2023-09-15 06:20 | ED.NURSE ---
MD Gamez updated on pt VS, verbal to start 500cc/1hr NS
[2023-09-15] MEDS: 0.9 % SODIUM CHLORIDE 500 ML 500 ML IV ×2 (06:23→08:32)
[2023-09-15 06:32] LABS: PCR FLU A POSITIVE PCR FLU A (Negative); PCR FLU B Negative PCR FLU B (Negative); PCR RSV Negative PCR RSV (Negative); SARS PCR* Negative SARS-CoV-2 (Negative)
--- NOTE | 2023-09-15 07:02 | ED.NURSE ---
Critical troponin of 0.10 called in by lab. aware.
[2023-09-15] MEDS: AZITHROMYCIN 250 MG TABLET 500 MG PO (07:15)
[2023-09-15] MEDS: OSELTAMIVIR PHOSPHATE 75 MG CAPSULE PO (07:16)
[2023-09-15 07:32] LABS: Fecal Occult Blood* Negative (Negative)
[2023-09-15] MEDS: 0.9 % SODIUM CHLORIDE 1000 ml 1,000 ML IV (07:33)
[2023-09-15] MEDS: cefTRIAXone 1 GM in 0.9 % SODIUM CHLORIDE Mini-bag 100 ML IVPB (07:35)
--- NOTE | 2023-09-15 07:37 | ED.NURSE ---
started another saline lock and obtained one of the blood cultures from the iv start with lab present. patient is sitting up in bed and uncomfortable. other staff checking a manual bp 88 systolic. Infusing 0.9% normal saline one liter now.
[2023-09-15 07:38] LABS: Lactate* 0.7 mmol/L (0.5-1.9)
[2023-09-15] MEDS: KETOROLAC 15 MG/ML inj IVP (08:15)
[2023-09-15 08:42] LABS: Procalcitonin* 0.07 ng/mL (<0.50)
[2023-09-15 08:45] LABS: Troponin I* 0.42 ng/mL (0.01-0.04)
--- NOTE | 2023-09-15 08:46 | ED.NURSE ---
Informed Dr. Gamez of the increased trop I from lab 0.42
--- NOTE | 2023-09-15 10:41 | ED.NURSE ---
Pt report given to MYRNA Whelan at [facility]. Report also given off to [facility].
== END 2023-09-15 10:30 | disposition short-term general hospital (02) ==
PROVIDERS: Family Medicine; Emergency Provider Family Medicine
DX: I95.9 Hypotension, unspecified (principal); J09.X2 Influenza due to identified novel influenza A virus with other respiratory manifestations; R01.1 Cardiac murmur, unspecified; R09.02 Hypoxemia
CPT/HCPCS: 36415; 71045; 82270; 82565; 82803; 82947; 83605; 84132; 84145; 84295; 84484; 85025; 87040; 87631; 93005; 94761; 96365; 96375; 99285; 99291; 99292; A9270; J0696; J1100; J1885; J7030

== ENCOUNTER 2023-09-15 10:27 | Outpatient (CLI) | payer MEDICAID, SELFPAY ==
--- OUTSIDE RECORDS SUMMARY | 2023-09-18 16:39 | XMS_ITS | Clinical Summary ---
Author Name Unknown Organization [facility] Address [place], [place] [address] Care Team Providers Care Service Delivery Director Name Role Phone Pcp, No Primary Care [...] age to complete this topic Care Teams Service Delivery Director Relationship Specialty Start Date End Date Pcp, No . PCP - General 04/18/23
== END 2023-09-15 10:28 | disposition home or self-care (01) ==
PROVIDERS: Visit Provider Student in an Organized Health Care Education/Training Program
DX: J10.1 Influenza due to other identified influenza virus with other respiratory manifestations (principal); R79.89 Other specified abnormal findings of blood chemistry
CPT/HCPCS: A0425; A0427